=== PATIENT | female | born 1980 | race Caucasian/White ===

== ENCOUNTER 2016-07-24 12:30 | Emergency (ER) | payer OTHER ==
--- NOTE | 2016-07-24 12:37 | EDM.PDOC ---
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 Review of systems: As per history of present illness and below otherwise all systems reviewed and negative. Past medical history: As per history of present illness and as reviewed below otherwise noncontributory. Surgical history: As per history of present illness and as reviewed below otherwise noncontributory. Social history: No reported history of drug or alcohol abuse. Family history: As per history of present illness and as reviewed below otherwise noncontributory. Physical exam: General: Well developed, well nourished in NAD HEENT: Atraumatic, normocephalic, pupils reactive, negative for conjunctival pallor or scleral icterus, mucous membranes moist, throat clear, neck supple, nontender, trachea midline. Lungs: Clear to auscultation, breath sounds equal bilaterally, chest nontender. Heart: S1S2, regular, negative for clicks, rubs, or JVD. Abdomen: Soft, nondistended, nontender. Negative for masses or hepatosplenomegaly. Negative for costovertebral tenderness. Pelvis: Stable nontender. Genitourinary: Deferred. Rectal: Deferred. Extremities: Atraumatic, negative for cords or calf pain. Neurovascular unremarkable. Neuro: Awake, alert, oriented. Cranial nerves II through XII unremarkable. Cerebellum unremarkable. Motor and sensory unremarkable throughout. Exam nonfocal. Diagnostics: [] HIV rapid and antibodies, hepatitis B surface antigen and hep C AB were sent Therapeutics: [] Impression: []exposure needle stick Plan: [] Followup PMD for results Definitive disposition and diagnosis as appropriate pending reevaluation and review of above. - Related Data Allergies Allergy/AdvReac Type Severity Reaction Status Date / Time No Known Allergies Allergy Verified 07/24/16 12:43 Home Meds: Ambulatory Orders Medication Instructions Recorded Confirmed Phentermine HCl 37.5 mg PO DAILY 07/24/16 07/24/16 ED ROS GENERAL - Review of Systems Review Of Systems: See Below (See history of present illness) ED EXAM, SKIN/RASH Exam: See Below (See history of present illness) Course - Vital Signs Last Recorded V/S: Last Vital Signs Temp 36.7 C 07/24/16 12:45 Pulse 89 07/24/16 12:45 Resp 18 07/24/16 12:45 BP 125/68 07/24/16 12:45 Pulse Ox 99 07/24/16 12:45 - Orders/Labs/Meds Orders: Active Orders 24 hr Category Date Time Status HEPATITIS B SURFACE ANTIGEN [REF] Stat Lab 07/24/16 12:46 Received HEPATITIS C AB [REF] Stat Lab 07/24/16 12:46 Received Labs: Laboratory Tests 07/24/16 Range/Units 12:46 HIV 1&2 Ag/Ab, 4th Gen 0.1 (<1.0) Departure - Departure Time of Disposition: 12:44 Disposition: Home, Self-Care 01 Condition: good Clinical Impression: Exposure to body fluids by contaminated hypodermic needle stick Instructions: Needlestick Injury, [id number] Referrals: PCP,None [Primary Care Provider] - Forms: ED Department Discharge - My Orders Last 24 Hours: My Active Orders 07/24/16 12:46 HEPATITIS B SURFACE ANTIGEN [REF] Stat HEPATITIS C AB [REF] Stat - Assessment/Plan Last 24 Hours: My Active Orders 07/24/16 12:46 HEPATITIS B SURFACE ANTIGEN [REF] Stat HEPATITIS C AB [REF] Stat
[2016-07-24 12:49] VITALS: BP 125/68
== END 2016-07-24 13:34 | disposition home or self-care (01) ==
LOC: MW.ED 12:30
DX: Z77.21 Contact with and (suspected) exposure to potentially hazardous body fluids (principal)
CPT/HCPCS: 36415; 86803; 87340; 87389; 99281; 99283

== ENCOUNTER 2020-02-27 06:59 | Emergency (ER) | payer OTHER ==
--- NOTE | 2020-02-27 07:12 | EDM.PDOC ---
ED HPI GENERAL MEDICAL PROBLEM - General Chief Complaint: Skin Complaint Stated Complaint: ALLERGIC REACTION TO MEDICATION Time Seen by Provider: 02/27/20 07:06 Source of Information: Reports: Patient, Old Records History Limitations: Reports: No Limitations - History of Present Illness INITIAL COMMENTS - FREE TEXT/NARRATIVE: This is a 39-year-old female with a past medical history of hyperlipidemia, hypertension, and palpitations presenting with concern for an allergic reaction. Patient was prescribed Bactrim for UTI and took the first dose around 530 this morning. Around 6:20 AM, she began developing an itchy erythematous rash to her abdomen, thighs, and back. She believes she was having allergic reaction so she came to the ER for evaluation. In the interim, she feels that her rash is improving. At no point did she have any swelling to the throat, tongue, face, wheezing, cough, shortness of breath, lightheadedness, abdominal cramping, vomiting, or diarrhea. She did not take any medications prior to arrival. She has no known history of medication or environmental allergies. Past medical history: Reviewed, no additional pertinent history. Surgical history: Reviewed in system, no additional pertinent history. Social history: Reviewed in system, no additional pertinent history. Family history: Reviewed in system, no additional pertinent history. PHYSICAL EXAM Vital signs reviewed. Nursing notes reviewed. Constitutional: Awake, alert, non-distressed. Head: Normocephalic, atraumatic. Eyes: EOMI, conjunctiva normal, no discharge, no scleral icterus. Ears, Nose, Throat: External ears and nose normal, moist oral mucosa. No intraoral edema, midline uvula, no lingual edema, no facial swelling. Cardiovascular: 2+ radial pulse, capillary refill less than 2 seconds. Pulmonary: normal work of breathing, no accessory muscle use. No wheezing. Abdomen/GI: Soft, nontender, nondistended, no guarding or rigidity, no masses. Musculoskeletal: No deformities. Integumentary: Appropriate color for ethnicity, warm, dry, no pallor or jaundice. Mild erythematous macular rash noted to scattered areas of the abdomen, back. Neurologic: Alert, answering questions appropriately, normal speech, no facial droop, moving all extremities well. Psychiatric: Appropriate mood and affect, normal thought process. This patient was seen and evaluated during the 2019 SARS-CoV-2 novel coronavirus pandemic period. Community viral transmission is ongoing at time of this encounter and the emergency department is operating under pandemic response procedures. - Related Data Allergies Allergy/AdvReac Type Severity Reaction Status Date / Time sulfamethoxazole Allergy Rash Verified 02/27/20 07:07 [From Bactrim] trimethoprim [From Bactrim] Allergy Rash Verified 02/27/20 07:07 Home Meds: Home Meds L.acidoph,Paracasei, B.lactis [Probiotic] 1 cap PO DAILY 04/27/18 [History] Multivitamin [Multivitamins] 1 cap PO DAILY 04/27/18 [History] Livingston-3 Fatty Acids [Livingston-3] 100 mg PO DAILY 04/27/18 [History] LORazepam [Ativan] 0.5 mg PO ASDIRECTED PRN 02/27/20 [History] Rosuvastatin [Crestor] 5 mg PO DAILY 02/27/20 [History] atenoloL [Atenolol] 25 mg PO DAILY 02/27/20 [History] cephALEXin [Keflex] 500 mg PO BID 7 Days #28 capsule 02/27/20 [Rx] traZODone HCl [Trazodone HCl] 50 mg PO ASDIRECTED PRN 02/27/20 [History] Past Medical History Cardiovascular History: Reports: Other (See Below) Other Cardiovascular History: palpitations - Past Surgical History HEENT Surgical History: Reports: Adenoidectomy, Tonsillectomy GI Surgical History: Reports: Cholecystectomy Musculoskeletal Surgical History: Reports: Other (See Below) Other Musculoskeletal Surgeries/Procedures:: vein stripping surgery Social & Family History - Family History Family Medical History: No Pertinent Family History - Caffeine Use Caffeine Use: Reports: Coffee ED ROS GENERAL - Review of Systems Review Of Systems: See Below ED EXAM, SKIN/RASH Exam: See Below Course - Vital Signs Text/Narrative:: Patient hemodynamically stable, afebrile, well-appearing, looks nontoxic. Differential diagnosis includes but is not limited to: Mild allergic reaction, cellulitis, etc. Presentation seems to be consistent with a very mild allergic reaction. There is no sign of systemic illness or anaphylaxis. No evidence of facial or oral involvement or pulmonary involvement. No indication for epinephrine at this point. Can be treated safely with oral antihistamine medications. Would not recommend glucocorticoids given pandemic viral illness at this point. Given a dose of cetirizine here in the emergency department. Will change antibiotic for UTI to Keflex. Discussed treatment with [id number] Benadryl as needed along with daily cetirizine or Zyrtec. Bactrim added to allergy list in EMR. Plan: Patient is stable to discharge home with outpatient primary care clinic follow-up. Strict emergency department return precautions were provided, patient indicated understanding. All questions were answered prior to departure. Discharged in good condition. Last Recorded V/S: Last Vital Signs Temp 36.6 C 02/27/20 07:10 Pulse 75 02/27/20 07:10 Resp 17 02/27/20 07:10 BP 121/77 02/27/20 07:10 Pulse Ox 98 02/27/20 07:10 - Orders/Labs/Meds Meds: Medications Discontinued Medications Generic Name Dose Route Start Last Admin Trade Name Freq PRN Reason Stop Dose Admin Loratadine 10 mg 02/27/20 07:26 Claritin PO 02/27/20 07:27 ONETIME ONE Departure - Departure Time of Disposition: 07:27 Disposition: Home, Self-Care 01 Condition: Good Clinical Impression: Allergic reaction to drug Qualifiers: Encounter type: initial encounter Qualified Code(s): T78.40XA - Allergy, unspecified, initial encounter - Discharge Information *PRESCRIPTION DRUG MONITORING PROGRAM REVIEWED*: Not Applicable *COPY OF PRESCRIPTION DRUG MONITORING REPORT IN PATIENT SUNNY: Not Applicable Prescriptions: cephALEXin [Keflex] 500 mg PO BID 7 Days #28 capsule Instructions: Allergies, Adult Referrals: [facility] - [facility] [Provider Group] - 1 Week (For follow-up of symptoms.) Forms: ED Department Discharge Additional Instructions: You were seen in the emergency department for evaluation of a rash. You are likely having a mild allergic reaction to your Bactrim antibiotic medication. I advised you to stop this medication. I am going to prescribe you a medication called Keflex instead for UTI. I recommend taking Claritin or Zyrtec once daily in the morning, this is a nonsedating allergy medication. You can also take [id number] Benadryl as directed on the package if needed for itching. You can also try Benadryl lotion or cream. Warning signs to come back to the ER include: Facial swelling, oral swelling, tongue swelling, shortness of breath, wheezing, lightheadedness, fever, severe flank pain, or any other new or worsening symptoms. Please return the emergency department immediately if your symptoms worsen or if you feel worse. Thank you for choosing the [facility] emergency department in [facility] for your medical needs today. It was a pleasure caring for you. The following information is given to patients seen in the emergency department who are being discharged. This information is to outline your options for follow-up care. We provide all patients seen in our emergency department with a follow-up referral. The need for follow-up, as well as the timing and circumstances, are variable depending upon the specifics of your emergency department visit. If you don't have a primary care physician on staff, we will provide you with a referral. We always advise you to contact your personal physician following an emergency department visit to inform them of the circumstance of the visit and for follow-up with them and/or the need for any referrals to a consulting specialist. The emergency department will also refer you to a specialist when appropriate. This referral assures that you have the opportunity for follow-up care with a specialist. All of these measure are taken in an effort to provide you with optimal care, which includes your follow-up. Under all circumstances we always encourage you to contact your private physician who remains a resource for coordinating your care. When calling for follow-up care, please make the office aware that this follow-up is from your recent emergency room visit. If for any reason you are refused follow-up, please contact the [facility] Emergency Department at and asked to speak to the emergency department charge nurse. If you do not have a primary care physician that is caring for you, you can contact these clinics below to set up an appointment to establish care: [facility] - Primary Care [address] [place] [address] [facility] [address] [place] [id number] Sepsis Event Note (ED) - Focused Exam Vital Signs: Vital Signs Temp Pulse Resp BP Pulse Ox 02/27/20 07:10 36.6 C 75 17 121/77 98
[2020-02-27] MEDS ORDERED: Loratadine 10 MG Tab PO ONE (07:26)
[2020-02-27 07:43] VITALS: BP 115/82; PULSE 72
== END 2020-02-27 07:42 | disposition home or self-care (01) ==
LOC: MW.ED 06:59
DX: R21 Rash and other nonspecific skin eruption (principal); T36.8X5A Adverse effect of other systemic antibiotics, initial encounter; Z88.2 Allergy status to sulfonamides; Z79.899 Other long term (current) drug therapy; Z90.49 Acquired absence of other specified parts of digestive tract
CPT/HCPCS: 99283; A9270; 99282

== ENCOUNTER 2020-03-26 15:41 | Emergency (ER) | payer OTHER ==
[2020-03-26 16:54] LABS: BLOOD UREA NITROGEN,BUN 13 mg/dL (7.0-18.0); CHLORIDE,CL 102 mmol/L (98-107); GLUCOSE RANDOM 106 mg/dL (74-106); POTASSIUM,K 3.7 mmol/L (3.5-5.1); SODIUM,NA 139 mmol/L (136-145)
--- NOTE | 2020-03-26 17:22 | EDM.PDOC ---
ED HPI GENERAL MEDICAL PROBLEM - General Chief Complaint: Respiratory Problem Stated Complaint: SHORTNESS OF BREATH Time Seen by Provider: 03/26/20 15:49 Source of Information: Reports: Patient History Limitations: Reports: No Limitations - History of Present Illness INITIAL COMMENTS - FREE TEXT/NARRATIVE: HISTORY AND PHYSICAL: History of present illness: Patient is a 40-year-old female who presents to the emergency room today with feeling like she cannot take a big deep breath in that has been ongoing since midnight. Patient states that she does not feel short of breath but does not get the "relief "when she takes a big deep breath then and was concerned about a possible blood clot. Patient states that she works in the [employer] and so she was concerned about this and put a pulse oximeter on at work. Patient states that her oxygen has been consistently 97% or higher. Patient states that she has a history of palpitations that she was on a beta-harman for for 1 year and was weaned off of this 1 week ago. Patient states that she has not had any recurrence of her palpitations. Other than the sensation of not being able to take a big deep breath in, she denies any other associated symptoms. Patient states that there is a chance that she could be as she is not on control but states that her last menstrual cycle was 2 to 3 weeks ago and was normal for her. Patient denies fever, chills, chest pain, shortness of breath, or cough. Denies headache, neck stiff ness, change in vision, syncope, or near syncope. Denies nausea, vomiting, abdominal pain, diarrhea, constipation, or dysuria. Has not noted any blood in urine or stool. Patient has been eating and drinking appropriately. Review of systems: As per history of present illness and below otherwise all systems reviewed and negative. Past medical history: As per history of present illness and as reviewed below otherwise noncontributory. Surgical history: As per history of present illness and as reviewed below otherwise noncontributory. Social history: See social history for further information Family history: As per history of present illness and as reviewed below otherwise noncontributory. Physical exam: General: Patient is alert, oriented, and in no acute distress. Patient sitting comfortably on exam table. Vital stable and reviewed by me. HEENT: Atraumatic, normocephalic, pupils equal and reactive bilaterally, negative for conjunctival pallor or scleral icterus, mucous membranes moist, TMs normal bilaterally, throat clear, neck supple, nontender, trachea midline. No drooling or trismus noted. No meningeal signs. No hot potato voice noted. Lungs: Patient speaking clearly without breathlessness, no wheezing or stridor, no accessory muscle use or respiratory distress. Auscultation deferred due to current COV-ID 19 outbreak. Heart: Auscultation deferred due to current COV-ID 19 outbreak. Abdomen: Soft, nondistended, nontender. Negative for masses or h epatosplenomegaly. Negative for costovertebral tenderness. Pelvis: Stable nontender. Genitourinary: Deferred. Rectal: Deferred. Skin: Intact, warm, dry. No lesions or rashes noted. Extremities: Atraumatic, negative for cords or calf pain. Neurovascular unremarkable. Neuro: Awake, alert, oriented. Cranial nerves II through XII unremarkable. Cerebellum unremarkable. Motor and sensory unremarkable throughout. Exam nonfocal. Notes: Will give patient Amoxicillin RX and proair. Azithromycin considered, however, concern for prolonged QT interaction associated with patients other home medication so at this time, will treat with amoxicillin at this time. Strict return precautions thoroughly discussed with patient. Discussed importance for follow-up with a primary care provider. Voices understanding and is agreeable to plan of care. Denies any further questions or concerns at this time. Diagnostics: EKG, CBC, CMP, UA, urine hCG, chest x-ray, D-dimer, troponin, COVID-19 Therapeutics: None Prescription: Amoxicillin, Proair inhaler Impression: Community acquired pneumonia, RLL Plan: 1. Take medication as prescribed. You can alternate ibuprofen and Tylenol as directed for pain and discomfort. 2. Follow-up with a primary care provider as discussed. Return to the ED as needed and as discussed. Definitive disposition and diagnosis as appropriate pending reevaluation and review of above. chest Pain Score (Numeric/FACES): 0 - Related Data Allergies Allergy/AdvReac Type Severity Reaction Status Date / Time sulfamethoxazole Allergy Rash Verified 03/26/20 15:47 [From Bactrim] trimethoprim [From Bactrim] Allergy Rash Verified 03/26/20 15:47 Home Meds: Home Meds L.acidoph,Paracasei, B.lactis [Probiotic] 1 cap PO DAILY 04/27/18 [History] Multivitamin [Multivitamins] 1 cap PO DAILY 04/27/18 [History] Roberts-3 Fatty Acids [Roberts-3] 100 mg PO DAILY 04/27/18 [History] LORazepam [Ativan] 0.5 mg PO ASDIRECTED PRN 02/27/20 [History] Rosuvastatin [Crestor] 5 mg PO DAILY 02/27/20 [History] traZODone HCl [Trazodone HCl] 50 mg PO ASDIRECTED PRN 02/27/20 [History] Albuterol Sulfate [Proair Hfa] 8.5 gm IH Q8HR PRN #1 [email or web address] 03/26/20 [Rx] Amoxicillin 1,000 mg PO TID 7 Days #42 tablet 03/26/20 [Rx] Past Medical History Cardiovascular History: Reports: Other (See Below) Other Cardiovascular History: palpitations Psychiatric History: Reports: Anxiety - Infectious Disease History Infectious Disease History: Reports: Chicken Pox - Past Surgical History HEENT Surgical History: Reports: Adenoidectomy, Tonsillectomy GI Surgical History: Reports: Cholecystectomy Musculoskeletal Surgical History: Reports: Other (See Below) Other Musculoskeletal Surgeries/Procedures:: vein stripping surgery Social & Family History - Family History Family Medical History: No Pertinent Family History - Tobacco Use Tobacco Use Status *Q: Current Some Day Tobacco User Years of Tobacco use: 20 Packs/Tins Daily: 1 - Caffeine Use Caffeine Use: Reports: Coffee - Recreational Drug Use Recreational Drug Use: No ED ROS GENERAL - Review of Systems Review Of Systems: Comprehensive ROS is negative, except as noted in HPI. ED EXAM, GENERAL - Physical Exam Exam: See Below (see dictation) Course - Vital Signs Last Recorded V/S: Last Vital Signs Temp 96.8 F L 03/26/20 15:48 Pulse 83 03/26/20 18:33 Resp 18 03/26/20 18:33 BP 115/74 03/26/20 18:33 Pulse Ox 98 03/26/20 18:33 - Orders/Labs/Meds Orders: Active Orders 24 hr Category Date Time Status CULTURE URINE [RM] Stat Lab 03/26/20 15:53 Received Labs: Laboratory Tests 03/26/20 03/26/20 03/26/20 Range/Units 15:53 15:53 16:17 WBC 9.91 (4.0-11.0) K/uL RBC 4.14 L (4.30-5.90) M/uL Hgb 12.8 (12.0-16.0) g/dL Hct 38.6 (36.0-46.0) % MCV 93.2 (80.0-98.0) fL MCH 30.9 (27.0-32.0) pg MCHC 33.2 (31.0-37.0) g/dL RDW Std Deviation 44.1 (28.0-62.0) fl RDW Coeff of Maryjane 13 (11.0-15.0) % Plt Count 259 (150-400) K/uL MPV 10.10 (7.40-12.00) fL Neut % (Auto) 63.9 (48.0-80.0) % Lymph % (Auto) 28.6 (16.0-40.0) % Bailey % (Auto) 6.2 (0.0-15.0) % Eos % (Auto) 1.1 (0.0-7.0) % Baso % (Auto) 0.2 (0.0-1.5) % Neut # (Auto) 6.3 H (1.4-5.7) K/uL Lymph # (Auto) 2.8 H (0.6-2.4) K/uL Bailey # (Auto) 0.6 (0.0-0.8) K/uL Eos # (Auto) 0.1 (0.0-0.7) K/uL Baso # (Auto) 0.0 (0.0-0.1) K/uL Nucleated RBC % 0.0 /100WBC Nucleated RBCs # 0 K/uL D-Dimer, Quantitative (0.0-0.50) mg/L FEU Sodium (136-145) mmol/L Potassium (3.5-5.1) mmol/L Chloride (98-107) mmol/L Carbon Dioxide (21.0-32.0) mmol/L BUN (7.0-18.0) mg/dL Creatinine (0.6-1.0) mg/dL Est Cr Clr Drug Dosing mL/min Estimated GFR (MDRD) ml/min Glucose (74-106) mg/dL Calcium (8.5-10.1) mg/dL Total Bilirubin (0.2-1.0) mg/dL AST (15-37) IU/L ALT (14-63) IU/L Alkaline Phosphatase (46-116) U/L Troponin I (0.000-0.056) ng/mL Total Protein (6.4-8.2) g/dL Albumin (3.4-5.0) g/dL Globulin (2.6-4.0) g/dL Albumin/Globulin Ratio (0.9-1.6) Urine Color YELLOW Urine Appearance CLEAR Urine pH 5.5 (5.0-8.0) Ur Specific [place] >= 1.030 (1.001-1.035) Urine Protein NEGATIVE (NEGATIVE) mg/dL Urine Glucose (UA) NEGATIVE (NEGATIVE) mg/dL Urine Ketones NEGATIVE (NEGATIVE) mg/dL Urine Occult Blood SMALL H (NEGATIVE) Urine Nitrite NEGATIVE (NEGATIVE) Urine Bilirubin NEGATIVE (NEGATIVE) Urine Urobilinogen 0.2 (<2.0) EU/dL Ur Leukocyte Esterase TRACE H (NEGATIVE) Urine RBC 1-2 (0-2/HPF) Urine WBC 2-4 (0-5/HPF) Ur Epithelial Cells OCCASIONAL (NONE-FEW) Amorphous Sediment RARE (NEGATIVE) Urine Bacteria FEW (NEGATIVE) Urine Mucus RARE (NONE-MOD) Urine HCG, Qual NEGATIVE (NEGATIVE) SARS-CoV-2 RNA (MYKE) (NEGATIVE) 03/26/20 03/26/20 03/26/20 Range/Units 16:17 16:17 17:28 WBC (4.0-11.0) K/uL RBC (4.30-5.90) M/uL Hgb (12.0-16.0) g/dL Hct (36.0-46.0) % MCV (80.0-98.0) fL MCH (27.0-32.0) pg MCHC (31.0-37.0) g/dL RDW Std Deviation (28.0-62.0) fl RDW Coeff of Maryjane (11.0-15.0) % Plt Count (150-400) K/uL MPV (7.40-12.00) fL Neut % (Auto) (48.0-80.0) % Lymph % (Auto) (16.0-40.0) % Bailey % (Auto) (0.0-15.0) % Eos % (Auto) (0.0-7.0) % Baso % (Auto) (0.0-1.5) % Neut # (Auto) (1.4-5.7) K/uL Lymph # (Auto) (0.6-2.4) K/uL Bailey # (Auto) (0.0-0.8) K/uL Eos # (Auto) (0.0-0.7) K/uL Baso # (Auto) (0.0-0.1) K/uL Nucleated RBC % /100WBC Nucleated RBCs # K/uL D-Dimer, Quantitative 0.32 (0.0-0.50) mg/L FEU Sodium 139 (136-145) mmol/L Potassium 3.7 (3.5-5.1) mmol/L Chloride 102 (98-107) mmol/L Carbon Dioxide 24.0 (21.0-32.0) mmol/L BUN 13 (7.0-18.0) mg/dL Creatinine 0.9 (0.6-1.0) mg/dL Est Cr Clr Drug Dosing 65.72 mL/min Estimated GFR (MDRD) > 60.0 ml/min Glucose 106 (74-106) mg/dL Calcium 9.5 (8.5-10.1) mg/dL Total Bilirubin 0.5 (0.2-1.0) mg/dL AST 15 (15-37) IU/L ALT 30 (14-63) IU/L Alkaline Phosphatase 48 (46-116) U/L Troponin I < 0.050 (0.000-0.056) ng/mL Total Protein 7.7 (6.4-8.2) g/dL Albumin 4.0 (3.4-5.0) g/dL Globulin 3.7 (2.6-4.0) g/dL Albumin/Globulin Ratio 1.1 (0.9-1.6) Urine Color Urine Appearance Urine pH (5.0-8.0) Ur Specific [place] (1.001-1.035) Urine Protein (NEGATIVE) mg/dL Urine Glucose (UA) (NEGATIVE) mg/dL Urine Ketones (NEGATIVE) mg/dL Urine Occult Blood (NEGATIVE) Urine Nitrite (NEGATIVE) Urine Bilirubin (NEGATIVE) Urine Urobilinogen (<2.0) EU/dL Ur Leukocyte Esterase (NEGATIVE) Urine RBC (0-2/HPF) Urine WBC (0-5/HPF) Ur Epithelial Cells (NONE-FEW) Amorphous Sediment (NEGATIVE) Urine Bacteria (NEGATIVE) Urine Mucus (NONE-MOD) Urine HCG, Qual (NEGATIVE) SARS-CoV-2 RNA (MYKE) NEGATIVE (NEGATIVE) Departure - Departure Time of Disposition: 18:34 Disposition: Home, Self-Care 01 Clinical Impression: Community acquired pneumonia Qualifiers: Laterality: right Lung location: lower lobe of lung Qualified Code(s): J18.9 - Pneumonia, unspecified organism - Discharge Information Prescriptions: Amoxicillin 1,000 mg PO TID 7 Days #42 tablet Albuterol Sulfate [Proair Hfa] 8.5 gm IH Q8HR PRN #1 hfa.aer.ad PRN Reason: Cough Instructions: Community-Acquired Pneumonia, Adult, [id number] Referrals: PCP,Not In Area [Primary Care Provider] - Forms: ED Department Discharge Additional Instructions: The following information is given to patients seen in the emergency department who are being discharged to home. This information is to outline your options for follow-up care. We provide all patients seen in our emergency department with a follow-up referral. The need for follow-up, as well as the timing and circumstances, are variable depending upon the specifics of your emergency department visit. If you don't have a primary care physician on staff, we will provide you with a referral. We always advise you to contact your personal physician following an emergency department visit to inform them of the circumstance of the visit and for follow-up with them and/or the need for any referrals to a consulting specialist. The emergency department will also refer you to a specialist when appropriate. This referral assures that you have the opportunity for follow-up care with a specialist. All of these measure are taken in an effort to provide you with optimal care, which includes your follow-up. Under all circumstances we always encourage you to contact your private physician who remains a resource for coordinating your care. When calling for follow-up care, please make the office aware that this follow-up is from your recent emergency room visit. If for any reason you are refused follow-up, please contact the [facility] Emergency Department at and asked to speak to the emergency department charge nurse. [facility] [address] [place] [address] [facility] [address] [place] [address] 1. Take medication as prescribed. You can alternate ibuprofen and Tylenol as directed for pain and discomfort. 2. Follow-up with a primary care provider as discussed. Return to the ED as needed and as discussed. Sepsis Event Note (ED) - Evaluation Sepsis Screening Result: No Definite Risk - Focused Exam Vital Signs: Vital Signs Temp Pulse Resp BP Pulse Ox 03/26/20 18:33 83 18 115/74 98 03/26/20 15:48 96.8 F L 78 18 119/83 99 - My Orders Last 24 Hours: My Active Orders 03/26/20 15:53 CULTURE URINE [RM] Stat - Assessment/Plan Last 24 Hours: My Active Orders 03/26/20 15:53 CULTURE URINE [RM] Stat
--- NOTE | 2020-03-26 18:12 | CR ---
INDICATION: Shortness of breath TECHNIQUE: Chest radiograph 1 view COMPARISON: None FINDINGS: Mediastinum: The mediastinum is normal in appearance. The heart silhouette is normal in size and morphology. Lung: Mild reticulonodular opacities are present within the right lung base. No sign of pleural effusion seen. No pneumothorax is identified. Bone and Soft tissue: Unremarkable for age. IMPRESSION: 1. Mild reticulonodular opacities are present within the right lung base. Dictated by Bal Thompson MD @ 03/26/2020 6:10:45 PM Dictated by: Bal Thompson MD @ 03/26/2020 18:10:51 (Electronically Signed)
[2020-03-26 18:35] VITALS: BP 115/74; PULSE 83
--- NOTE | 2020-03-26 20:53 | PCM.SN.2 ---
#1 Interpretation EKG Date: 03/26/20 Time: 15:59 Rhythm: NSR Rate (Beats/Min): 76 [place]: Normal P-Wave: Present QRS: Normal ST-T: Normal QT: Normal Comparison: No Change (08/16/18) EKG Interpretation Comments: Sinus Rhythm
== END 2020-03-26 18:40 | disposition home or self-care (01) ==
LOC: MW.ED 15:41
DX: J18.9 Pneumonia, unspecified organism (principal); Z88.2 Allergy status to sulfonamides; F17.210 Nicotine dependence, cigarettes, uncomplicated; Z90.49 Acquired absence of other specified parts of digestive tract; Z20.828 Contact with and (suspected) exposure to other viral communicable diseases
CPT/HCPCS: 36415; 71045; 71045-26; 80053; 81001; 81025; 84484; 85025; 85379; 87086; 93005; 93010; 99284; 99284-25; U0002

== ENCOUNTER 2020-10-06 17:08 | Emergency (ER) | payer OTHER ==
[2020-10-06] MEDS ORDERED: Sodium Chloride 0.9% 1,000 ML IV ONE (17:29)
--- NOTE | 2020-10-06 17:29 | PCM.EKG ---
#1 Interpretation EKG Date: 10/06/20 Time: 17:20 Rhythm: NSR Rate (Beats/Min): 88 ST-T: Normal
--- NOTE | 2020-10-06 17:34 | EDM.PDOC ---
ED HPI GENERAL MEDICAL PROBLEM - General Chief Complaint: Cardiovascular Problem Stated Complaint: POSSIBLE ANXIETY, FAST HEART RATE Time Seen by Provider: 10/06/20 17:12 Source of Information: Reports: Patient History Limitations: Reports: No Limitations - History of Present Illness INITIAL COMMENTS - FREE TEXT/NARRATIVE: HISTORY AND PHYSICAL: History of present illness: Patient is a 40-year-old female who presents emergency room today with concern of an episode of dizziness and palpitations that occurred just 1 hour prior to travel to the emergency room. Patient states that she has had issues of palpitations and chest pain in the past and has had a catheterization of her heart approximately 1 year ago done at [facility] in [place] and was told that she has "vasospasms ". Patient states that she has not had many episodes or issues since but states that she was sitting on her couch today when she felt a sensation of dizziness and felt like her heart was racing. Patient states that she did the EKG on her apple watch and was told that her rhythm was irregular so she came to emergency room for further evaluation. Patient states at this time, she feels a little bit dehydrated and fatigued but states that her dizziness and palpitations have improved since being here. Patient states that due to the vasospasms, she was given nitro to take and states that she did take this 1 hour prior to coming to the emergency room when her symptoms came on. Patient states that she has not seen or followed up in a year with anybody. Patient denies any other symptoms or concerns. Patient denies fever, chills, chest pain, shortness of breath, or cough. Denies headache, neck stiff ness, change in vision, syncope, or near syncope. Denies nausea, vomiting, abdominal pain, diarrhea, constipation, or dysuria. Has not noted any blood in urine or stool. Patient has been eating and drinking appropriately. Review of systems: As per history of present illness and below otherwise all systems reviewed and negative. Past medical history: As per history of present illness and as reviewed below otherwise noncontributory. Surgical history: As per history of present illness and as reviewed below otherwise noncontributory. Social history: See social history for further information Family history: As per history of present illness and as reviewed below otherwise non contributory. Physical exam: General: Patient is alert, oriented, and in no acute distress. Patient laying comfortably on exam table. Vitals stable and reviewed by me. HEENT: Atraumatic, normocephalic, pupils equal and reactive bilaterally, negative for conjunctival pallor or scleral icterus, mucous membranes moist, TMs normal bilaterally, throat clear, neck supple, nontender, trachea midline. No drooling or trismus noted. No meningeal signs. No hot potato voice noted. Lungs: Clear to auscultation, breath sounds equal bilaterally, chest nontender. Heart: S1S2, regular rate and rhythm without overt murmur Abdomen: Soft, nondistended, nontender. Negative for masses or hepatosplenomegaly. Negative for costovertebral tenderness. Pelvis: Stable nontender. Genitourinary: Deferred. Rectal: Deferred. Skin: Intact, warm, dry. No lesions or rashes noted. Extremities: Atraumatic, negative for cords or calf pain. Neurovascular unremarkable. Neuro: Awake, alert, oriented. Cranial nerves II through XII unremarkable. Cerebellum unremarkable. Motor and sensory unremarkable throughout. Exam nonfocal. Notes: Patient is a 40-year-old female who presents emergency room today with concern of an episode of palpitations and dizziness that occurred 1 hour prior to travel to emergency room. Upon arrival to the ED, patient is vitally stable and well- appearing on exam and does not have any complaints at this time. Will perform cardiac evaluation, initiate a fluid bolus, and reassess patient. See Dr. Choi's dictation for specific EKG interpretation. However, normal sinus rhythm with a rate of 88. No STEMI. Mild derangements of lab work today unremarkable. hCG negative. Troponin negative. Chest x-ray shows no acute cardiopulmonary findings. Upon reevaluation of patient, she remains vitally stable and comfortable throughout stay in ED. Strict return precautions thoroughly discussed with patient. Patient provided with a Holter monitor/Zio patch with strict return precautions and discussed importance for follow-up with primary care provider. Voices understanding and is agreeable to plan of care. Denies any further questions or concerns at this time. Diagnostics: EKG, CBC, CMP, UA, serum hCG, chest x-ray, troponin, orthostatic vitals, magnesium, TSH Therapeutics: Saline Prescription: Ziopatch Holter monitoring Impression: Palpitations Dizziness Plan: 1. Apply and keep the Zio patch monitor on as directed and as discussed. 2. Follow-up with a primary care provider as discussed. Return to the ED as needed and as discussed. Definitive disposition and diagnosis as appropriate pending reevaluation and review of above. - Related Data Allergies Allergy/AdvReac Type Severity Reaction Status Date / Time sulfamethoxazole Allergy Rash Verified 10/06/20 17:18 [From Bactrim] trimethoprim [From Bactrim] Allergy Rash Verified 10/06/20 17:18 Home Meds: Home Meds L.acidoph,Paracasei, B.lactis [Probiotic] 1 cap PO DAILY 04/27/18 [History] Multivitamin [Multivitamins] 1 cap PO DAILY 04/27/18 [History] [place]-3 Fatty Acids [[place]-3] 100 mg PO DAILY 04/27/18 [History] LORazepam [Ativan] 0.5 mg PO ASDIRECTED PRN 02/27/20 [History] Rosuvastatin [Crestor] 5 mg PO DAILY 02/27/20 [History] traZODone HCl [Trazodone HCl] 50 mg PO ASDIRECTED PRN 02/27/20 [History] Albuterol Sulfate [Proair Hfa] 8.5 gm IH Q8HR PRN #1 hfa.aer.ad 03/26/20 [Rx] Amoxicillin 1,000 mg PO TID 7 Days #42 tablet 03/26/20 [Rx] Past Medical History Cardiovascular History: Reports: Other (See Below) Other Cardiovascular History: palpitations Psychiatric History: Reports: Anxiety - Infectious Disease History Infectious Disease History: Reports: Chicken Pox - Past Surgical History HEENT Surgical History: Reports: Adenoidectomy, Tonsillectomy GI Surgical History: Reports: Cholecystectomy Musculoskeletal Surgical History: Reports: Other (See Below) Other Musculoskeletal Surgeries/Procedures:: vein stripping surgery Social & Family History - Family History Family Medical History: No Pertinent Family History - Caffeine Use Caffeine Use: Reports: Coffee - Recreational Drug Use Recreational Drug Use Frequency: Socially ED ROS GENERAL - Review of Systems Review Of Systems: Comprehensive ROS is negative, except as noted in HPI. ED EXAM, GENERAL - Physical Exam Exam: See Below (see dictation) Course - Vital Signs Last Recorded V/S: Last Vital Signs Temp 97.8 F 10/06/20 17:19 Pulse 75 10/06/20 18:20 Resp 18 10/06/20 18:20 BP 121/68 10/06/20 18:20 Pulse Ox 97 06/26/21 18:20 - Orders/Labs/Meds Orders: Active Orders 24 hr Category Date Time Status Cardiac Monitoring [RC] . DIRECTED Care 10/06/20 17:29 Active EKG Documentation Completion [RC] STAT Care 10/06/20 17:29 Active Orthostatic Vital Signs [RC] ASDIRECTED Care 10/06/20 17:29 Active Labs: Laboratory Tests 10/06/20 10/06/20 10/06/20 Range/Units 17:37 17:37 17:37 WBC 8.56 (4.0-11.0) K/uL RBC 3.99 L (4.30-5.90) M/uL Hgb 12.5 (12.0-16.0) g/dL Hct 37.3 (36.0-46.0) % MCV 93.5 (80.0-98.0) fL MCH 31.3 (27.0-32.0) pg MCHC 33.5 (31.0-37.0) g/dL RDW Std Deviation 43.6 (28.0-62.0) fl RDW Coeff of Maryjane 13 (11.0-15.0) % Plt Count 304 (150-400) K/uL MPV 9.60 (7.40-12.00) fL Neut % (Auto) 59.2 (48.0-80.0) % Lymph % (Auto) 30.7 (16.0-40.0) % [place] % (Auto) 7.4 (0.0-15.0) % Eos % (Auto) 2.2 (0.0-7.0) % Baso % (Auto) 0.5 (0.0-1.5) % Neut # (Auto) 5.1 (1.4-5.7) K/uL Lymph # (Auto) 2.6 H (0.6-2.4) K/uL [place] # (Auto) 0.6 (0.0-0.8) K/uL Eos # (Auto) 0.2 (0.0-0.7) K/uL Baso # (Auto) 0.0 (0.0-0.1) K/uL Sodium 143 (136-145) mmol/L Potassium 4.2 (3.5-5.1) mmol/L Chloride 108 H (98-107) mmol/L Carbon Dioxide 27.4 (21.0-32.0) mmol/L BUN 9 (7.0-18.0) mg/dL Creatinine 0.8 (0.6-1.0) mg/dL Est Cr Clr Drug Dosing 73.93 mL/min Estimated GFR (MDRD) > 60.0 ml/min Glucose 122 H (74-106) mg/dL Calcium 8.4 L (8.5-10.1) mg/dL Magnesium 1.8 (1.8-2.4) mg/dL Total Bilirubin 0.2 (0.2-1.0) mg/dL AST 16 (15-37) IU/L ALT 35 (14-63) IU/L Alkaline Phosphatase 52 (46-116) U/L Troponin I < 0.050 (0.000-0.056) ng/mL Total Protein 7.1 (6.4-8.2) g/dL Albumin 3.5 (3.4-5.0) g/dL Globulin 3.6 (2.6-4.0) g/dL Albumin/Globulin Ratio 1.0 (0.9-1.6) TSH 3rd Generation 0.55 (0.36-3.74) uIU/mL HCG, Qual NEGATIVE (NEG) Meds: Medications Discontinued Medications Generic Name Dose Route Start Last Admin Trade Name Freq PRN Reason Stop Dose Admin Sodium Chloride 1,000 mls @ 999 mls/hr 10/06/20 17:29 10/06/20 17:35 Normal Saline IV 10/06/20 18:29 999 mls/hr BOLUS ONE Administration Departure - Departure Time of Disposition: 18:21 Disposition: Home, Self-Care 01 Clinical Impression: Dizziness, Palpitations with regular cardiac rhythm - Discharge Information Instructions: Palpitations, [id number], Dizziness, [id number] Referrals: PCP,None [Primary Care Provider] - Forms: ED Department Discharge Additional Instructions: The following information is given to patients seen in the emergency department who are being discharged to home. This information is to outline your options for follow-up care. We provide all patients seen in our emergency department with a follow-up referral. The need for follow-up, as well as the timing and circumstances, are variable depending upon the specifics of your emergency department visit. If you don't have a primary care physician on staff, we will provide you with a referral. We always advise you to contact your personal physician following an emergency department visit to inform them of the circumstance of the visit and for follow-up with them and/or the need for any referrals to a consulting specialist. The emergency department will also refer you to a specialist when appropriate. This referral assures that you have the opportunity for follow-up care with a specialist. All of these measure are taken in an effort to provide you with optimal care, which includes your follow-up. Under all circumstances we always encourage you to contact your private physician who remains a resource for coordinating your care. When calling for follow-up care, please make the office aware that this follow-up is from your recent emergency room visit. If for any reason you are refused follow-up, please contact the [facility] Emergency Department at and asked to speak to the emergency department charge nurse. [facility] [address] [place], [place] [id number] [place] [address] 1. Apply and keep the Zio patch monitor on as directed and as discussed. 2. Follow-up with a primary care provider as discussed. Return to the ED as needed and as discussed. Sepsis Event Note (ED) - Evaluation Sepsis Screening Result: No Definite Risk - Focused Exam Vital Signs: Vital Signs Temp Pulse Resp BP Pulse Ox 10/06/20 18:20 75 18 121/68 97 10/06/20 17:19 97.8 F 97 18 136/78 96 - My Orders Last 24 Hours: My Active Orders 10/06/20 17:29 Cardiac Monitoring [RC] . DIRECTED EKG Documentation Completion [RC] STAT Orthostatic Vital Signs [RC] ASDIRECTED - Assessment/Plan Last 24 Hours: My Active Orders 10/06/20 17:29 Cardiac Monitoring [RC] . DIRECTED EKG Documentation Completion [RC] STAT Orthostatic Vital Signs [RC] ASDIRECTED
--- NOTE | 2020-10-06 18:05 | CR ---
Indication: Dizziness and palpitations Technique: Chest 1 view Comparison: March 26, 2020 Findings/Impression: Cardiovascular and mediastinum: Heart size and vasculature are normal in caliber and appearance. Mediastinum is within normal limits. Lungs and pleural space: Lungs are clear. No sign of infiltrate or mass. No sign of pleural effusion. No pneumothorax. Bones and soft tissues: No significant findings. Dictated by Nikkie Carias MD @ 10/06/2020 6:04:[address] Nikkie Carias @ Oct 06 2020 6:04PM
[2020-10-06 18:13] LABS: BLOOD UREA NITROGEN,BUN 9 mg/dL (7.0-18.0); CARBON DIOXIDE,CO2 27.4 mmol/L (21.0-32.0); CHLORIDE,CL 108 mmol/L (98-107); GLUCOSE RANDOM 122 mg/dL (74-106); POTASSIUM,K 4.2 mmol/L (3.5-5.1); SODIUM,NA 143 mmol/L (136-145)
[2020-10-06 18:20] VITALS: BP 121/68; PULSE 75
== END 2020-10-06 18:31 | disposition home or self-care (01) ==
LOC: MW.ED 17:08
DX: R00.2 Palpitations (principal); R42 Dizziness and giddiness; Z88.2 Allergy status to sulfonamides
CPT/HCPCS: 36415; 71045; 80053; 83735; 84443; 84484; 84703; 85025; 93005; 99285; J7030; 93010; 99283

== ENCOUNTER 2020-10-31 15:35 | Emergency (ER) | payer OTHER ==
--- NOTE | 2020-10-31 16:15 | EDM.PDOC ---
ED HPI GENERAL MEDICAL PROBLEM - General Chief Complaint: Chest Pain Stated Complaint: CHEST PAIN DIZZINESS Time Seen by Provider: 10/31/20 15:49 Source of Information: Reports: Patient History Limitations: Reports: No Limitations - History of Present Illness INITIAL COMMENTS - FREE TEXT/NARRATIVE: Patient is a 40-year-old female who presents today for palpitations. Patient th at she was at home sleeping when she woke up with palpitations her apple watch that heart rate was in the 130s. States that on the way here heart rate decreased down to the 90s and she currently has no symptoms. She has had this before with these palpitations and had extensive work-up with angios in the past stress test echoes and Holter monitors. Per her they found no concerning findings to say was causing the symptoms. Patient exam is currently not having any palpitations or symptoms. Denies taking coffee today take any supplements or drugs. She was on atenolol in the past and did state that she took atenolol earlier today as she been off it for the past few months. - Related Data Allergies Allergy/AdvReac Type Severity Reaction Status Date / Time sulfamethoxazole Allergy Rash Verified 10/31/20 16:38 [From Bactrim] trimethoprim [From Bactrim] Allergy Rash Verified 10/31/20 16:38 Home Meds: Home Meds L.acidoph,Paracasei, B.lactis [Probiotic] 1 cap PO DAILY 04/27/18 [History] Multivitamin [Multivitamins] 1 cap PO DAILY 04/27/18 [History] [place]-3 Fatty Acids [[place]-3] 100 mg PO DAILY 04/27/18 [History] LORazepam [Ativan] 0.5 mg PO ASDIRECTED PRN 02/27/20 [History] Rosuvastatin [Crestor] 5 mg PO DAILY 02/27/20 [History] Albuterol Sulfate [Proair Hfa] 8.5 gm IH Q8HR PRN #1 hfa.aer.ad 03/26/20 [Rx] Past Medical History Cardiovascular History: Reports: Other (See Below) Other Cardiovascular History: palpitations Psychiatric History: Reports: Anxiety - Infectious Disease History Infectious Disease History: Reports: Chicken Pox - Past Surgical History HEENT Surgical History: Reports: Adenoidectomy, Tonsillectomy GI Surgical History: Reports: Cholecystectomy Musculoskeletal Surgical History: Reports: Other (See Below) Other Musculoskeletal Surgeries/Procedures:: vein stripping surgery Social & Family History - Family History Family Medical History: No Pertinent Family History - Caffeine Use Caffeine Use: Reports: Coffee ED ROS GENERAL - Review of Systems Review Of Systems: See Below Constitutional: Reports: No Symptoms HEENT: Reports: No Symptoms Respiratory: Reports: No Symptoms Cardiovascular: Reports: Palpitations Endocrine: Reports: No Symptoms GI/Abdominal: Reports: No Symptoms : Reports: No Symptoms Musculoskeletal: Reports: No Symptoms Skin: Reports: No Symptoms Neurological: Reports: No Symptoms Psychiatric: Reports: No Symptoms Hematologic/Lymphatic: Reports: No Symptoms Immunologic: Reports: No Symptoms ED EXAM, GENERAL - Physical Exam Exam: See Below Exam Limited By: No Limitations General Appearance: Alert, WD/WN, No Apparent Distress Eye Exam: Bilateral Eye: EOMI, PERRL Respiratory/Chest: No Respiratory Distress, Lungs Clear, Normal Breath Sounds Cardiovascular: Normal Peripheral Pulses, Regular Rate, Rhythm, No Edema GI/Abdominal: Normal Bowel Sounds, Soft, Non-Tender Extremities: Normal Inspection, Normal Range of Motion, Non-Tender Neurological: Alert, Oriented, CN II-XII Intact, Normal Cognition, Normal Gait #1 Interpretation EKG Date: 10/31/20 Time: 15:43 Rhythm: NSR Rate (Beats/Min): 92 ST-T: Normal Course - Vital Signs Last Recorded V/S: Last Vital Signs Temp 98.2 F 10/31/20 16:44 Pulse 79 10/31/20 16:44 Resp 18 10/31/20 16:44 BP 112/62 10/31/20 16:44 Pulse Ox 97 10/31/20 16:44 - Orders/Labs/Meds Orders: Active Orders 24 hr Category Date Time Status EKG Documentation Completion [RC] STAT Care 10/31/20 16:00 Active Labs: Laboratory Tests 10/31/20 10/31/20 10/31/20 Range/Units 15:43 15:43 15:43 WBC 12.76 H (4.0-11.0) K/uL RBC 4.30 (4.30-5.90) M/uL Hgb 13.6 (12.0-16.0) g/dL Hct 39.3 (36.0-46.0) % MCV 91.4 (80.0-98.0) fL MCH 31.6 (27.0-32.0) pg MCHC 34.6 (31.0-37.0) g/dL RDW Std Deviation 43.7 (28.0-62.0) fl RDW Coeff of Maryjane 13 (11.0-15.0) % Plt Count 331 (150-400) K/uL MPV 10.10 (7.40-12.00) fL Neut % (Auto) 72.3 (48.0-80.0) % Lymph % (Auto) 19.6 (16.0-40.0) % [place] % (Auto) 6.9 (0.0-15.0) % Eos % (Auto) 0.9 (0.0-7.0) % Baso % (Auto) 0.3 (0.0-1.5) % Neut # (Auto) 9.2 H (1.4-5.7) K/uL Lymph # (Auto) 2.5 H (0.6-2.4) K/uL [place] # (Auto) 0.9 H (0.0-0.8) K/uL Eos # (Auto) 0.1 (0.0-0.7) K/uL Baso # (Auto) 0.0 (0.0-0.1) K/uL Nucleated RBC % 0.0 /100WBC Nucleated RBCs # 0 K/uL Sodium 140 (136-145) mmol/L Potassium 3.8 (3.5-5.1) mmol/L Chloride 102 (98-107) mmol/L Carbon Dioxide 25.9 (21.0-32.0) mmol/L BUN 14 (7.0-18.0) mg/dL Creatinine 0.7 (0.6-1.0) mg/dL Est Cr Clr Drug Dosing TNP Estimated GFR (MDRD) > 60.0 ml/min Glucose 93 (74-106) mg/dL Calcium 8.9 (8.5-10.1) mg/dL Total Bilirubin 0.4 (0.2-1.0) mg/dL AST 15 (15-37) IU/L ALT 29 (14-63) IU/L Alkaline Phosphatase 61 (46-116) U/L Creatine Kinase 79 (26-308) U/L Troponin I < 0.050 (0.000-0.056) ng/mL Total Protein 7.8 (6.4-8.2) g/dL Albumin 4.1 (3.4-5.0) g/dL Globulin 3.7 (2.6-4.0) g/dL Albumin/Globulin Ratio 1.1 (0.9-1.6) TSH, Ultra Sensitive 1.17 (0.36-3.74) uIU/mL HCG, Qual NEGATIVE (NEG) - Re-Assessments/Exams Free Text/Narrative Re-Assessment/Exam: 10/31/20 17:58 Patient told results. Patient had signs work-up in the past for similar symptoms without any findings. She is already scheduled to see cardiology for Holter monitor. Departure - Departure Time of Disposition: 17:58 Disposition: Home, Self-Care 01 Condition: Good Clinical Impression: Tachycardia Instructions: Sinus Tachycardia Referrals: Ami Guzmán MD [Primary Care Provider] - Forms: ED Department Discharge Additional Instructions: The following information is given to patients seen in the emergency department who are being discharged to home. This information is to outline your options for follow-up care. We provide all patients seen in our emergency department with a follow-up referral. The need for follow-up, as well as the timing and circumstances, are variable depending upon the specifics of your emergency department visit. If you don't have a primary care physician on staff, we will provide you with a referral. We always advise you to contact your personal physician following an emergency department visit to inform them of the circumstance of the visit and for follow-up with them and/or the need for any referrals to a consulting specialist. The emergency department will also refer you to a specialist when appropriate. This referral assures that you have the opportunity for follow-up care with a specialist. All of these measure are taken in an effort to provide you with optimal care, which includes your follow-up. Under all circumstances we always encourage you to contact your private physician who remains a resource for coordinating your care. When calling for follow-up care, please make the office aware that this follow-up is from your recent emergency room visit. If for any reason you are refused follow-up, please contact the [facility] Emergency Department at and asked to speak to the emergency department charge nurse. Please follow up with your primary care physician. If you do not have a primary care physician, see below: Cardiac Rehabilitation at [facility] [address] [place] [id number] You were seen today for palpitations. We repeated your EKG labs and x-rays that were within normal range. You have had the symptoms before in the past has seen cardiology for work-ups. We give you results she can follow with your preparing box tender again. If you have any other concerning signs or symptoms please return to the ED. Sepsis Event Note (ED) - Focused Exam Vital Signs: Vital Signs Temp Pulse Resp BP Pulse Ox 10/31/20 16:44 98.2 F 79 18 112/62 97 10/31/20 15:35 97.8 F 106 H 20 137/83 98 - My Orders Last 24 Hours: My Active Orders 10/31/20 16:00 EKG Documentation Completion [RC] STAT - Assessment/Plan Last 24 Hours: My Active Orders 10/31/20 16:00 EKG Documentation Completion [RC] STAT Plan: Patient is a 40-year-old female presents today for palpitations. Patient had a heart rate of 130 per her on her apple watch. Here heart rates been in 90s in sinus rhythm. She is currently asymptomatic. She is happy since before the past had a sense of work-up. She was on atenolol in the past but was weaned off it from her preparing box tender. Will obtain EKG labs x-ray and reassess.
[2020-10-31 16:31] LABS: BLOOD UREA NITROGEN,BUN 14 mg/dL (7.0-18.0); CARBON DIOXIDE,CO2 25.9 mmol/L (21.0-32.0); CHLORIDE,CL 102 mmol/L (98-107); GLUCOSE RANDOM 93 mg/dL (74-106); POTASSIUM,K 3.8 mmol/L (3.5-5.1); SODIUM,NA 140 mmol/L (136-145)
--- NOTE | 2020-10-31 17:16 | CR ---
For Patients: As a result of the Century Cures Act, medical imaging exams and procedure reports are released immediately into your electronic medical record. You may view this report before your referring provider. If you have questions, please contact your health care provider. INDICATION: palpitations. prior 10-06-20 TECHNIQUE: Chest 2 views. COMPARISON: 10/06/20 FINDINGS: Cardiovascular and mediastinum: Heart size and vasculature are normal in caliber and appearance. Mediastinum is within normal limits. Lungs and pleural spaces: Lungs are clear. No sign of infiltrate or mass. No sign of pleural effusion. No pneumothorax. Bones and soft tissues: No significant findings. IMPRESSION: Unremarkable chest. Dictated by: Nelson White MD @ 10/31/2020 17:14:22 (Electronically Signed)
[2020-10-31 19:14] VITALS: BP 108/66; PULSE 78
== END 2020-10-31 18:10 | disposition home or self-care (01) ==
LOC: MW.ED 15:35
DX: R00.0 Tachycardia, unspecified (principal); Z79.899 Other long term (current) drug therapy; Z88.1 Allergy status to other antibiotic agents
CPT/HCPCS: 36415; 71046; 71046-26; 80053; 82550; 84443; 84484; 84703; 85025; 93005; 99285-25

== ENCOUNTER 2020-12-06 08:30 | Emergency (ER) | payer OTHER ==
[2020-12-06] MEDS ORDERED: Ondansetron 4 MG/2 ML SDV IVPUSH ONE (08:41)
[2020-12-06] MEDS ORDERED: methylPREDNISolone Sodium Succinate 125 MG/2 ML SDV IVPUSH ONE (08:46)
[2020-12-06] MEDS ORDERED: Famotidine 20 MG/2 ML SDV IVPUSH ONE (08:46)
[2020-12-06] MEDS ORDERED: Ketorolac 30 MG/ML SDV IVPUSH ONE (08:49)
--- NOTE | 2020-12-06 08:49 | EDM.PDOC ---
ED HPI GENERAL MEDICAL PROBLEM - General Chief Complaint: Allergic Reaction Stated Complaint: allergic reaction Time Seen by Provider: 12/06/20 08:40 Source of Information: Reports: Patient History Limitations: Reports: No Limitations - History of Present Illness INITIAL COMMENTS - FREE TEXT/NARRATIVE: Patient is a 40-year-old female who presents today for possible allergic gaye ction. Patient states she took a Macrobid for a UTI and last night she had some hives but did not think it was due to the medication. She took meds again here and developed hives to her chest. She works and was given Benadryl by one of the providers in clinic. States she is having some vomiting upset stomach. Some tingling of her leg that she had last time she has reaction. She is taken Macrobid for UTI. She denies any fever chills no difficulty swallowing or breathing. Bilateral Upper Leg Pain Score (Numeric/FACES): 10 - Related Data Allergies Allergy/AdvReac Type Severity Reaction Status Date / Time sulfamethoxazole Allergy Rash Verified 12/06/20 08:46 [From Bactrim] trimethoprim [From Bactrim] Allergy Rash Verified 12/06/20 08:46 Home Meds: Home Meds L.acidoph,Paracasei, B.lactis [Probiotic] 1 cap PO DAILY 04/27/18 [History] Multivitamin [Multivitamins] 1 cap PO DAILY 04/27/18 [History] [place]-3 Fatty Acids [[place]-3] 100 mg PO DAILY 04/27/18 [History] LORazepam [Ativan] 0.5 mg PO ASDIRECTED PRN 02/27/20 [History] Rosuvastatin [Crestor] 5 mg PO DAILY 02/27/20 [History] Albuterol Sulfate [Proair Hfa] 8.5 gm IH Q8HR PRN #1 hfa.aer.ad 03/26/20 [Rx] Past Medical History Cardiovascular History: Reports: Other (See Below) Other Cardiovascular History: palpitations Respiratory History: Reports: None Gastrointestinal History: Reports: None Genitourinary History: Reports: None 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 Neurological History: Reports: None Psychiatric History: Reports: Anxiety Endocrine/Metabolic History: Reports: None Hematologic History: Reports: None Immunologic History: Reports: None Oncologic (Cancer) History: Reports: None Dermatologic History: Reports: None - Infectious Disease History Infectious Disease History: Reports: Chicken Pox - Past Surgical History HEENT Surgical History: Reports: Adenoidectomy, Tonsillectomy GI Surgical History: Reports: Cholecystectomy Musculoskeletal Surgical History: Reports: Other (See Below) Other Musculoskeletal Surgeries/Procedures:: vein stripping surgery Social & Family History - Family History Family Medical History: No Pertinent Family History - Caffeine Use Caffeine Use: Reports: None ED ROS ALLERGIC REACTION - Review of Systems Review Of Systems: See Below Constitutional: Reports: No Symptoms HEENT: Reports: No Symptoms Respiratory: Reports: No Symptoms Cardiovascular: Reports: No Symptoms Endocrine: Reports: No Symptoms GI/Abdominal: Reports: Vomiting : Reports: No Symptoms Musculoskeletal: Reports: No Symptoms Skin: Reports: Urticaria Neurological: Reports: No Symptoms Psychiatric: Reports: No Symptoms Hematologic/Lymphatic: Reports: No Symptoms Immunologic: Reports: No Symptoms ED EXAM GENERAL NO PERIP PULSE - Physical Exam Exam: See Below Exam Limited By: No Limitations General Appearance: Alert, WD/WN, Moderate Distress Eye Exam: Bilateral Eye: EOMI, PERRL Head: Atraumatic, Normocephalic Neck: Normal Inspection Respiratory/Chest: No Respiratory Distress, Lungs Clear, Normal Breath Sounds Cardiovascular: Normal Peripheral Pulses, Regular Rate, Rhythm GI/Abdominal: Normal Bowel Sounds, Soft, Non-Tender Extremities: Normal Inspection Neurological: Alert, Oriented Skin Exam: Rash Course - Vital Signs Last Recorded V/S: Last Vital Signs Temp 96.8 F L 12/06/20 08:47 Pulse 63 12/06/20 09:42 Resp 16 12/06/20 09:42 BP 114/64 12/06/20 09:42 Pulse Ox 99 12/06/20 09:42 - Orders/Labs/Meds Labs: Laboratory Tests 12/06/20 12/06/20 12/06/20 Range/Units 08:43 08:43 08:43 WBC 10.80 (4.0-11.0) K/uL RBC 4.17 L (4.30-5.90) M/uL Hgb 13.1 (12.0-16.0) g/dL Hct 38.8 (36.0-46.0) % MCV 93.0 (80.0-98.0) fL MCH 31.4 (27.0-32.0) pg MCHC 33.8 (31.0-37.0) g/dL RDW Std Deviation 42.8 (28.0-62.0) fl RDW Coeff of Maryjane 13 (11.0-15.0) % Plt Count 326 (150-400) K/uL MPV 9.80 (7.40-12.00) fL Neut % (Auto) 57.0 (48.0-80.0) % Lymph % (Auto) 34.7 (16.0-40.0) % [place] % (Auto) 7.2 (0.0-15.0) % Eos % (Auto) 0.9 (0.0-7.0) % Baso % (Auto) 0.2 (0.0-1.5) % Neut # (Auto) 6.2 H (1.4-5.7) K/uL Lymph # (Auto) 3.8 H (0.6-2.4) K/uL [place] # (Auto) 0.8 (0.0-0.8) K/uL Eos # (Auto) 0.1 (0.0-0.7) K/uL Baso # (Auto) 0.0 (0.0-0.1) K/uL Nucleated RBC % 0.0 /100WBC Nucleated RBCs # 0 K/uL Sodium 138 (136-145) mmol/L Potassium 4.0 (3.5-5.1) mmol/L Chloride 103 (98-107) mmol/L Carbon Dioxide 23.9 (21.0-32.0) mmol/L BUN 15 (7.0-18.0) mg/dL Creatinine 0.9 (0.6-1.0) mg/dL Est Cr Clr Drug Dosing 65.72 mL/min Estimated GFR (MDRD) > 60.0 ml/min Glucose 120 H (74-106) mg/dL Calcium 8.3 L (8.5-10.1) mg/dL Total Bilirubin 0.4 (0.2-1.0) mg/dL AST 26 (15-37) IU/L ALT 41 (14-63) IU/L Alkaline Phosphatase 58 (46-116) U/L Total Protein 7.2 (6.4-8.2) g/dL Albumin 3.8 (3.4-5.0) g/dL Globulin 3.4 (2.6-4.0) g/dL Albumin/Globulin Ratio 1.1 (0.9-1.6) HCG, Qual NEGATIVE (NEG) Meds: Medications Discontinued Medications Generic Name Dose Route Start Last Admin Trade Name Natasha PRN Reason Stop Dose Admin Famotidine 20 mg 12/06/20 08:46 12/06/20 08:59 Famotidine 20 Mg/2 Ml Sdv IVPUSH 12/06/20 08:47 20 mg ONETIME ONE Administration Ketorolac Tromethamine 30 mg 12/06/20 08:49 12/06/20 08:59 Ketorolac 30 Mg/Ml Sdv IVPUSH 12/06/20 08:50 30 mg ONETIME ONE Administration Methylprednisolone Sodium Succinate 125 mg 12/06/20 08:46 12/06/20 08:59 Methylprednisolone Sodium Succinate 125 Mg/2 Ml Sdv IVPUSH 12/06/20 08:47 125 mg ONETIME ONE Administration Ondansetron HCl 4 mg 12/06/20 08:41 12/06/20 08:59 Ondansetron 4 Mg/2 Ml Sdv IVPUSH 12/06/20 08:42 4 mg ONETIME ONE Administration - Re-Assessments/Exams Free Text/Narrative Re-Assessment/Exam: 12/06/20 10:04 Patient symptoms have resolved. 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 We explained the patient we normally watch for 3 to 4 hours however patient will be around other nurses and physicians and will be discharged. 12/06/20 10:05 Patient antibiotics were is already changed to Cipro by her primary care physician she would normally take the Bactrim will be added to her allergy list. Departure - Departure Time of Disposition: 10:04 Disposition: Home, Self-Care 01 Condition: Good Clinical Impression: Allergic reaction - Discharge Information *PRESCRIPTION DRUG MONITORING PROGRAM REVIEWED*: Not Applicable *COPY OF PRESCRIPTION DRUG MONITORING REPORT IN PATIENT SUNNY: Not Applicable Instructions: Anaphylactic Reaction, Adult Referrals: PCP,None [Primary Care Provider] - Forms: ED Department Discharge Additional Instructions: The following information is given to patients seen in the emergency department who are being discharged to home. This information is to outline your options for follow-up care. We provide all patients seen in our emergency department with a follow-up referral. The need for follow-up, as well as the timing and circumstances, are variable depending upon the specifics of your emergency department visit. If you don't have a primary care physician on staff, we will provide you with a referral. We always advise you to contact your personal physician following an emergency department visit to inform them of the circumstance of the visit and for follow-up with them and/or the need for any referrals to a consulting specialist. The emergency department will also refer you to a specialist when appropriate. This referral assures that you have the opportunity for follow-up care with a specialist. All of these measure are taken in an effort to provide you with optimal care, which includes your follow-up. Under all circumstances we always encourage you to contact your private physician who remains a resource for coordinating your care. When calling for follow-up care, please make the office aware that this follow-up is from your recent emergency room visit. If for any reason you are refused follow-up, please contact the [facility] Emergency Department at and asked to speak to the emergency department charge nurse. Please follow up with your primary care physician. If you do not have a primary care physician, see below: [facility] [address] [place] [id number] [facility] [address] [place] [id number] You were seen today for possible allergic reaction to your Bactrim. Your antibiotic was switched by your primary doctor already. We will send you home with a 4-day course of steroids which you should take. If you develop any other recurrent symptom please return to the ED. Sepsis Event Note (ED) - Focused Exam Vital Signs: Vital Signs Temp Pulse Resp BP Pulse Ox 12/06/20 09:42 63 16 114/64 99 12/06/20 08:47 96.8 F L 63 18 147/81 H 96 - Assessment/Plan Plan: Is a 40-year-old female who presents today for possible allergic reaction. Patient presents with hives to her face and upper extremities. She has no respiratory issues or difficulty swallowing. She does have some nausea vomiting will be given Zofran steroids Pepcid and will be reassessed.
[2020-12-06 09:19] LABS: BLOOD UREA NITROGEN,BUN 15 mg/dL (7.0-18.0); CARBON DIOXIDE,CO2 23.9 mmol/L (21.0-32.0); CHLORIDE,CL 103 mmol/L (98-107); GLUCOSE RANDOM 120 mg/dL (74-106); SODIUM,NA 138 mmol/L (136-145)
[2020-12-06 10:14] VITALS: BP 139/88; PULSE 60
== END 2020-12-06 10:16 | disposition home or self-care (01) ==
LOC: MW.ED 08:30
DX: L50.0 Allergic urticaria (principal); T36.8X5A Adverse effect of other systemic antibiotics, initial encounter; Z88.2 Allergy status to sulfonamides; Z88.1 Allergy status to other antibiotic agents; Z79.899 Other long term (current) drug therapy
CPT/HCPCS: 36415; 80053; 84703; 85025; 96374; 96375; 99283; J1885; J2405; J2930; J3490

== ENCOUNTER 2022-08-12 17:33 | Emergency (ER) | payer OTHER ==
[2022-08-12] MEDS ORDERED: Sodium Chloride 0.9% 2.5 ML Syringe FLUSH PRN (18:12)
[2022-08-12] MEDS ORDERED: Sodium Chloride 0.9% 10 ML Syringe FLUSH PRN (18:12)
[2022-08-12] MEDS ORDERED: Iopamidol 755 MG/ML 500 ML Multipack Bottle IVPUSH ONE (19:06)
[2022-08-12] MEDS ORDERED: Albuterol 8 GM Inhaler INH STA (19:42)
[2022-08-12 20:17] VITALS: BP 120/88; PULSE 75
== END 2022-08-12 20:14 | disposition home or self-care (01) ==
LOC: MW.ED 17:33
DX: R06.02 Shortness of breath (principal); Z86.16 Personal history of COVID-19; Z88.1 Allergy status to other antibiotic agents
CPT/HCPCS: 71275; 81025; 99285; A9270; J3490; Q9967; 99284